=== PATIENT | male | born 1935 | race Caucasian/White ===

== ENCOUNTER → 2021-09-25 | Outpatient (CLI) | payer MEDICARE ==
[2021-09-25 16:07] LABS: HCT 48.1 % (39.0-53.0); HGB 15.8 gm/dL (13.0-17.5); MCH 33.1 pg (25.0-35.0); MCHC 32.8 g/dL (31.0-37.0); MCV 100.9 fL (80.0-100.0); Mean Platelet Volume 7.9; Platelet Count 220 k/uL (150-450); RBC 4.76 m/uL (4.30-5.90); RDW 12.6 % (11.5-15.5); WBC 5.1 k/uL (3.8-10.6)
== END | disposition home or self-care (01) ==
LOC: LABPAT 14:39
PROVIDERS: ATTEND Internal Medicine Interventional Cardiology
DX: Z01.812 Encounter for preprocedural laboratory examination (principal); R19.34 Left lower quadrant abdominal rigidity
CPT/HCPCS: 80051; 82565; 84520; 85027

== ENCOUNTER 2021-10-03 09:21 | Day surgery (SDC) | payer MEDICARE ==
[2021-09-27 09:08] VITALS: BMI 32.3
[~2021-10-03 09:21] MED LIST: ALPRAZolam 0.25 MG TAB PO PRN; ALPRAZolam 0.5 MG TAB PO PRN; ASPIRIN 325 MG TAB PO STA; ATORVASTATIN 80 MG TAB PO STA; NITROGLYCERIN SL TABS 0.4 MG TAB SUBLINGUAL PRN; SODIUM CHLORIDE 0.9% 1,000 ML in EMPTY BAG 1 BAG IV SCH
[2021-10-03 09:50] VITALS: RESP 18; TEMP 98.5
[2021-10-03] MEDS ORDERED: LIDOCAINE 1% INJ 10MG/ML (20 ML MDV) ONE (10:16)
[2021-10-03] MEDS ORDERED: VERAPAMIL 2.5 MG/ML 2 ML AMP ONE (10:16)
[2021-10-03] MEDS ORDERED: HEPARIN SODIUM 1,000 UN/ML (10ML VL) ONE (10:16)
[2021-10-03] MEDS: MIDAZOLAM 2 MG/2 ML VIAL IV ONE ×2 (10:37→10:48)
[2021-10-03] MEDS ORDERED: VERAPAMIL SYRINGE (5 MG/10 ML) INTRAARTER ONE (10:38)
[2021-10-03] MEDS: LIDOCAINE 1% INJ 10MG/ML (20 ML MDV) SQ ONE ×2 (10:40→10:52)
[2021-10-03] MEDS: NITROGLYCERIN 1000MCG/10ML SYRINGE INTRACORON ONE ×2 (10:58→11:10)
[2021-10-03] MEDS ORDERED: IOPAMIDOL-370 100ML BTL INJ ONE (11:10)
[2021-10-03] MEDS ORDERED: SODIUM CHLORIDE 0.9% 1,000 ML IV SCH (11:20)
[2021-10-03] MEDS ORDERED: METOPROLOL SUCCINATE (ER) 25 MG TAB.ER.24H PO STA (11:35)
[2021-10-03] MEDS ORDERED: LOSARTAN 50 MG TAB PO STA (11:35)
--- NOTE | 2021-10-03 14:56 | CC ---
CARDIAC CATHETERIZATION REPORT DATE OF SERVICE: 10/03/2021 PROCEDURE: Left heart catheterization and coronary angiography. PERFORMED BY: Dr. Francesco Perez. Moderate conscious sedation time was 30 minutes. Patient was administered Versed, oxygen saturation, hemodynamics and EKG were monitored closely. CLINICAL INFORMATION: Mr. Micha Chiang is an 86-year-old elderly gentleman with a history of hyperlipidemia and chest discomfort with recent stress test that revealed very suspicious area for ischemia inferior wall, was advised cardiac cath after due discussion regarding risks, benefits, and options. PROCEDURE NOTE: Under local anesthesia and strict aseptic precautions, a 6-Canadian introducer was placed in the right radial artery. I advanced a wire with the right catheter but I had difficulty in the brachial artery area. There was a significant amount of spasm. I gave additional verapamil and nitro but still the spasm persisted. I could not advance the wire comfortably and therefore I abandoned the procedure, went from the right femoral approach. Under local anesthesia and strict aseptic precautions, a 6-Canadian introducer was placed in the right femoral artery. Using standard Gina catheters, I performed coronary angiography and a pigtail catheter was used to check LV pressure but LV gram was not performed. The sheath was taken out and Angio-Seal device used to secure hemostasis. I then went ahead and took the radial sheath out and placed a TR band with good saturation of the fingers of the right hand of 94%. Patient tolerated procedure well without complication. Results were discussed with the patient and and he was sent to the extended stay unit in a stable condition. CARDIAC CATHETERIZATION FINDINGS: Left ventricular end-diastolic pressure was about 14-15 mmHg without any gradient across the aortic valve. CORONARY ANGIOGRAPHY FINDINGS: RIGHT CORONARY ARTERY: Dominant Vessel. No significant disease. Distally bifurcates into a large PDA and PLV, both of which supply a sizable amount of myocardium. PLV is larger with a large acute marginal branch also that supplies in the PDA distribution. No significant disease in the dominant RCA. LEFT MAIN CORONARY ARTERY: Short patent vessel. No significant disease. Bifurcates into LAD and circumflex. LEFT ANTERIOR DESCENDING CORONARY ARTERY: Proximal LAD has a 40% smooth lesion that gives off two diagonal branches proximally which has a 60% ostial lesion and a second small diagonal. Then the LAD is of good caliber runs all the way to the apex supplies a sizable amount of myocardium. No significant disease in the LAD in the mid and distal portion. The proximal LAD has a 40% narrowing and the first diagonal also have a 60% narrowing. The diagonal is of fair caliber. There was no ischemia in the diagonal distribution on the stress test. LEFT POSTERIOR CIRCUMFLEX CORONARY ARTERY: Technically a nondominant vessel, gives off a first obtuse marginal that has a 40% narrowing and then it continues in the AV groove, gives off a small posterolateral and left atrial circumflex branches which are free of significant disease. First OM therefore has a 40% narrowing. Left ventriculogram was not performed. FINAL IMPRESSION: This patient has a right dominant system, slightly elevated filling pressures. No gradient. 40% proximal LAD lesion smooth. There is also a 40% first obtuse marginal lesion. The dominant RCA is free of significant disease. RECOMMENDATIONS: I will add a beta pk in the form of metoprolol succinate 25 mg daily and losartan 50 mg daily to his regimen. He will continue Lipitor that he is now taking. Findings were reviewed. We will pursue medical therapy with risk factor modification. I will increase the Lipitor that he is now taking from 10-20 mg daily. He will be discharged later on today and I will see him in the office on Saturday. MMODL / IJN: [id number] /
[2021-10-03 15:08] VITALS: BP 145/79; PULSE 54
== END 2021-10-03 17:04 | disposition home or self-care (01) ==
LOC: CATHCVL 09:21
PROVIDERS: ATTEND Internal Medicine Interventional Cardiology
DX: I25.10 Atherosclerotic heart disease of native coronary artery without angina pectoris (principal); E78.5 Hyperlipidemia, unspecified; Z20.822 Contact with and (suspected) exposure to COVID-19
CPT/HCPCS: 93458; 87635; C1760; C1894 ×2; C1769 ×3; J2250; J2001; Q9967

== ENCOUNTER 2024-09-10 14:17 | Observation (INO) | payer MEDICARE ==
[2024-09-10 14:49] LABS: Basophils % (A) 0 %; Eosinophils # (A) 0.1 k/uL (0-0.7); Eosinophils % (A) 1 %; HCT 48.1 % (39.0-53.0); HGB 15.9 gm/dL (13.0-17.5); Lymphocytes # (A) 1.1 k/uL (1.0-4.8); Lymphocytes % (A) 15 %; MCH 33.2 pg (25.0-35.0); MCHC 33.1 g/dL (31.0-37.0); MCV 100.3 fL (80.0-100.0); Mean Platelet Volume 7.3; Monocytes # (A) 0.3 k/uL (0-1.0); Monocytes % (A) 4 %; Neutrophils % (A) 78 %; Platelet Count 215 k/uL (150-450); RDW 12.6 % (11.5-15.5); WBC 7.7 k/uL (3.8-10.6)
[2024-09-10 14:57] LABS: INR 1.1 (<1.2); Partial Thromboplastin Time 24.6 sec (22.0-30.0); Prothrombin Time 11.8 sec (10.0-12.5)
--- NOTE | 2024-09-10 14:58 | ED ---
General Adult HPI - General Chief complaint: Altered Mental Status Stated complaint: L arm numbness-sent by PCP Time Seen by Provider: 09/10/24 14:40 Source: patient, RN notes reviewed, old records reviewed Mode of arrival: ambulatory Limitations: no limitations - History of Present Illness Initial comments: This is an 89-year-old male who presents to the emergency department stating he was up and working around the house without any problems morning at about noon he started becoming confused and started having some left arm numbness but no loss of function and he also had expressive aphasia according to the daughter currently patient only has the numbness remaining he no longer has expressive aphasia and he is not confused at this point in time. According to the daughter he did not know the year did not know the address of his home. Patient denies any headache patient has numbness weakness. Patient denies any blood thinners. Patient denies chest pain or palpitations. Patient denies shortness of breath. Patient denies abdominal pain patient has nausea vomiting diarrhea. Patient [place] any recent fevers chills or cough - Related Data Home Medications Medication Instructions Recorded Confirmed Aspirin 81 mg PO DAILY 09/27/21 09/10/24 Finasteride [Proscar] 5 mg PO DAILY 09/27/21 09/10/24 Levothyroxine Sodium [Levoxyl] 125 mcg PO DAILY 09/27/21 09/10/24 Vit C/E/Zn/Coppr/Lutein/Zeaxan 1 cap PO PC-BID 09/27/21 09/10/24 [Preservision Areds 2 Softgel] Atorvastatin [Lipitor] 20 mg PO HS 09/10/24 09/10/24 Losartan [Cozaar] 50 mg PO DAILY 09/10/24 09/10/24 Sennosides [Senokot] 17.2 mg PO HS 09/10/24 09/10/24 Allergies Allergy/AdvReac Type Severity Reaction Status Date / Time No Known Allergies Allergy Verified 09/10/24 15:55 Review of Systems ROS Statement: Those systems with pertinent positive or pertinent negative responses have been documented in the HPI. ROS Other: All systems not noted in ROS Statement are negative. Past Medical History Past Medical History: Cancer, Osteoarthritis (OA), Thyroid Disorder Additional Past Medical History / Comment(s): "One month ago had episode of SOB and arms were numb". Hx Skin Cancer and Pre-Melanoma. Enlarged Prostate. Graves Disease. History of Any Multi-Drug Resistant Organisms: None Reported Past Surgical History: Hernia Repair Additional Past Surgical History / Comment(s): Radioactive Iodine treatment for Thyroid. Skin Cancer removed left ear. Umbilical hernia repair. Past Anesthesia/Blood Transfusion Reactions: No Reported Reaction Past Psychological History: No Psychological Hx Reported Smoking Status: Former smoker Past Alcohol Use History: None Reported Past Drug Use History: None Reported - Past Family History Mother Family Medical History: Cancer Father Family Medical History: Cancer General Exam - General Exam Comments Initial Comments: GENERAL: Patient is well-developed and well-nourished. Patient is nontoxic and well- hydrated and is in no acute distress. ENT: Neck is soft and supple. No significant lymphadenopathy is noted. Oropharynx is clear. Moist mucous membranes. Neck has full range of motion without eliciting any pain. EYES: The sclera were anicteric and conjunctiva were pink and moist. Extraocular movements were intact and pupils were equal round and reactive to light. Eyelids were unremarkable. PULMONARY: Unlabored respirations. Good breath sounds bilaterally. No audible rales rhonchi or wheezing was noted. CARDIOVASCULAR: There is a regular rate and rhythm without any murmurs gallops or rubs. ABDOMEN: Soft and nontender with normal bowel sounds. SKIN: Skin is clear with no lesions or rashes and otherwise unremarkable. NEUROLOGIC: Patient is alert and oriented x3. Cranial nerves II through XII are grossly intact. Motor is intact. Normal speech, volume and content. Symmetrical smile. Cerebellar exam grossly intact. Patient has some decrease sensation in the left arm but no decreased function NIH is 1 MUSCULOSKELETAL: Normal extremities with adequate strength and full range of motion. No lower extremity swelling or edema. No calf tenderness. LYMPHATICS: No significant lymphadenopathy is noted PSYCHIATRIC: Normal psychiatric evaluation. Limitations: no limitations Course Vital Signs 09/10/24 09/10/24 09/10/24 14:23 14:39 15:46 Temperature 97.5 F L 98.7 F Pulse Rate 67 63 64 Respiratory 20 15 18 Rate Blood Pressure 151/75 143/63 146/92 O2 Sat by Pulse 97 96 95 Oximetry Medical Decision Making - Medical Decision Making EKG is interpreted by myself but EKG shows a sinus rhythm with an occasional PVC at 61 bpm IL interval 192 QRS is 96 QT interval is 441 QTc is 443. Patient's EKG shows no ST segment elevation or depression. Was pt. sent in by a medical professional or institution (FERNANDA Miller, REGULATION SUPERVISOR, urgent care, hospital, or correction...) When possible be specific @ -No Did you speak to anyone other than the patient for history (EMS, parent, family, police, friend...)? What history was obtained from this source @ -No Did you review nursing and triage notes (agree or disagree)? Why? @ -I reviewed and agree with nursing and triage notes Were old charts reviewed (outside hosp., previous admission, EMS record, old EKG, old radiological studies, urgent care reports/EKG's, correction records)? Report findings @ -No old charts were reviewed Differential Diagnosis? @ -Differential CVA Ischemic stroke, hemorrhagic stroke, brain tumor, atypical migraine, Wernicke's encephalopathy, seizure, multiple sclerosis, meningitis, encephalitis, hypoglycemia, Guillain-Mendiola, electrolytes disturbance, myasthenia gravis.... This is not meant to be an all-inclusive list EKG interpreted by me (3pts min.). @ -As above X-rays interpreted by me (1pt min.). @ -Chest x-ray shows no acute abnormality CT interpreted by me (1pt min.). @ -CT of the brain shows no acute abnormality CT angiogram of the head and neck shows no acute abnormality U/S interpreted by me (1pt. min.). @ -None done What testing was considered but not performed or refused? (CT, X-rays, U/S, labs)? Why? @ -None What meds were considered but not given or refused? Why? @ -None Did you discuss the management of the patient with other professionals (professionals i.e. FERNANDA Miller, REGULATION SUPERVISOR, lab, RT, psych nurse, medical social worker, irrigator overhead, teacher, state highway police officer, machine adjuster leader case trim)? Give summary @ -I spoke with [facility]ist they agreed to admit the patient admit the patient recommending orders Was smoking cessation discussed for >3mins.? @ -No Was critical care preformed (if so, how long)? @ -35 minutes Were there social determinants of health that impacted care today? How? (Homelessness, low income, unemployed, alcoholism, drug addiction, transportation, low edu. Level, literacy, decrease access to med. care, retirement, rehab)? @ -No Was there de-escalation of care discussed even if they declined (Discuss DNR or withdrawal of care, Hospice)? DNR status @ -No What co-morbidities impacted this encounter? (DM, HTN, Smoking, COPD, CAD, Cancer, CVA, ARF, Chemo, Hep., AIDS, mental health diagnosis, sleep apnea, morbid obesity)? @ -None Was patient admitted / discharged? Hospital course, mention meds given and route, prescriptions, significant lab abnormalities, going to OR and other pe rtinent info. @ -[employer] was called overhead immediately on patient's arrival. Patient's symptom completely resolved during his course in the ED. Patient CTs were negative. Patient will be admitted to Dr. Gresham with a consult to neurology Undiagnosed new problem with uncertain prognosis? @ -No Drug Therapy requiring intensive monitoring for toxicity (Heparin, Nitro, Insulin, Cardizem)? @ -No Were any procedures done? @ -No Diagnosis/symptom? @ -TIA Acute, or Chronic, or Acute on Chronic? @ -Acute Uncomplicated (without systemic symptoms) or Complicated (systemic symptoms)? @ -Complicated Side effects of treatment? @ -No Exacerbation, Progression, or Severe Exacerbation? @ -No Poses a threat to life or bodily function? How? (Chest pain, [place], [place], pneumonia, PE, COPD, DKA, ARF, appy, cholecystitis, CVA, Diverticulitis, Homicidal, Suicidal, threat to staff... and all critical care pts) @ -No - Lab Data Result diagrams: 09/10/24 14:41 09/10/24 14:41 Lab Results 09/10/24 09/10/24 09/10/24 Range/Units 14:41 14:41 14:41 WBC 7.7 (3.8-10.6) k/uL RBC 4.80 (4.30-5.90) m/uL Hgb 15.9 (13.0-17.5) gm/dL Hct 48.1 (39.0-53.0) % MCV 100.3 H (80.0-100.0) fL MCH 33.2 (25.0-35.0) pg MCHC 33.1 (31.0-37.0) g/dL RDW 12.6 (11.5-15.5) % Plt Count 215 (150-450) k/uL MPV 7.3 Neutrophils % 78 % Lymphocytes % 15 % Monocytes % 4 % Eosinophils % 1 % Basophils % 0 % Neutrophils # 6.0 (1.3-7.7) k/uL Lymphocytes # 1.1 (1.0-4.8) k/uL Monocytes # 0.3 (0-1.0) k/uL Eosinophils # 0.1 (0-0.7) k/uL Basophils # 0.0 (0-0.2) k/uL PT 11.8 (10.0-12.5) sec INR 1.1 (<1.2) APTT 24.6 (22.0-30.0) sec Sodium 138 (137-145) mmol/L Potassium 4.6 (3.5-5.1) mmol/L Chloride 105 (98-107) mmol/L Carbon Dioxide 26 (22-30) mmol/L Anion Gap 7 mmol/L BUN 26 H (9-20) mg/dL Creatinine 0.91 (0.66-1.25) mg/dL Est GFR (CKD-EPI)AfAm 87 (>60 ml/min/1.73 sqM) Est GFR (CKD-EPI)NonAf 76 (>60 ml/min/1.73 sqM) Glucose 149 H (74-99) mg/dL Calcium 8.9 (8.4-10.2) mg/dL Total Bilirubin 0.8 (0.2-1.3) mg/dL AST 31 (17-59) U/L ALT 20 (4-49) U/L Alkaline Phosphatase 54 (38-126) U/L Creatine Kinase 163 (55-170) U/L Troponin I (0.000-0.034) ng/mL Total Protein 6.5 (6.3-8.2) g/dL Albumin 4.0 (3.5-5.0) g/dL 09/10/24 Range/Units 14:41 WBC (3.8-10.6) k/uL RBC (4.30-5.90) m/uL Hgb (13.0-17.5) gm/dL Hct (39.0-53.0) % MCV (80.0-100.0) fL MCH (25.0-35.0) pg MCHC (31.0-37.0) g/dL RDW (11.5-15.5) % Plt Count (150-450) k/uL MPV Neutrophils % % Lymphocytes % % Monocytes % % Eosinophils % % Basophils % % Neutrophils # (1.3-7.7) k/uL Lymphocytes # (1.0-4.8) k/uL Monocytes # (0-1.0) k/uL Eosinophils # (0-0.7) k/uL Basophils # (0-0.2) k/uL PT (10.0-12.5) sec INR (<1.2) APTT (22.0-30.0) sec Sodium (137-145) mmol/L Potassium (3.5-5.1) mmol/L Chloride (98-107) mmol/L Carbon Dioxide (22-30) mmol/L Anion Gap mmol/L BUN (9-20) mg/dL Creatinine (0.66-1.25) mg/dL Est GFR (CKD-EPI)AfAm (>60 ml/min/1.73 sqM) Est GFR (CKD-EPI)NonAf (>60 ml/min/1.73 sqM) Glucose (74-99) mg/dL Calcium (8.4-10.2) mg/dL Total Bilirubin (0.2-1.3) mg/dL AST (17-59) U/L ALT (4-49) U/L Alkaline Phosphatase (38-126) U/L Creatine Kinase (55-170) U/L Troponin I <0.012 (0.000-0.034) ng/mL Total Protein (6.3-8.2) g/dL Albumin (3.5-5.0) g/dL Disposition Clinical Impression: TIA (transient ischemic attack) Disposition: ADMITTED IP TO THIS HOSP Referrals: Rom Mena MD [Primary Care Provider] - 1-2 days Time of Disposition: 17:01
[2024-09-10] MEDS: SODIUM CHLORIDE 0.9% 500 ML 500 ML IV STA (15:01)
--- NOTE | 2024-09-10 15:02 | CT ---
EXAMINATION TYPE: CODE STROKE: CT brain wo contr CT DLP: 1657.9 mGycm, Automated exposure control for dose reduction was used. DATE OF EXAM: 09/10/2024 2:39 PM COMPARISON: None. CLINICAL INDICATION:Male, 89 years old with history of Neuro deficit, acute, stroke suspected, TECHNIQUE: Brain: Multiple axial CT images of the brain were obtained without IV contrast. . Coronal and sagitta l reformats reviewed. FINDINGS: Brain: Extra-axial spaces: No abnormal extra-axial fluid collections. Ventricular system: Within normal limits Cerebral parenchyma: Cerebral atrophy. No acute intraparenchymal hemorrhage or mass effect. The nair -white junction is well differentiated. Scattered hypoattenuating areas are seen within the periventr icular white matter. Cerebellum: Unremarkable. Mass effect: No evidence of midline shift. Intracranial vasculature: Atherosclerotic calcifications of the intracranial vessels. Soft tissues: Normal. Calvarium/osseous structures: No depressed skull fracture. Paranasal sinuses and mastoid air cells: Clear Visualized orbits: Bilateral aphakia IMPRESSION: 1. No acute intracranial process. 2. Nonspecific white matter changes, likely secondary to chronic small vessel ischemic disease. [facility], , 09/10/2024 3:00 PM
[2024-09-10 15:07] LABS: ALT 20 U/L (4-49); African American GFR (CKD) 87 (>60 ml/min/1.73 sqM); Anion Gap 7 mmol/L; Blood Urea Nitrogen 26 mg/dL (9-20); Calcium 8.9 mg/dL (8.4-10.2); Carbon Dioxide 26 mmol/L (22-30); Chloride 105 mmol/L (98-107); Creatine Kinase 163 U/L (55-170); Glucose 149 mg/dL (74-99); Non-African American GFR(CKD) 76 (>60 ml/min/1.73 sqM); Sodium 138 mmol/L (137-145); Total Bilirubin 0.8 mg/dL (0.2-1.3); Total Protein 6.5 g/dL (6.3-8.2)
[2024-09-10 15:09] LABS: AST 31 U/L (17-59); Alkaline Phosphatase 54 U/L (38-126); Potassium 4.6 mmol/L (3.5-5.1)
--- NOTE | 2024-09-10 15:17 | CT ---
EXAMINATION TYPE: CT angio head neck CT DLP: 1657.9 mGycm, Automated exposure control for dose reduction was used. DATE OF EXAM: 09/10/2024 3:07 PM COMPARISON: CT brain of the same date. CLINICAL INDICATION:Male, 89 years old with history of Neuro deficit, acute, stroke suspected; [facility], TECHNIQUE: Axially acquired helical CT angiogram of the head and neck was obtained with contrast util izing 75 cc of Isovue-370 administered intravenously. Axial images are supplemented with 3D reconstru ctions which were post-processed at an independent workstation. NASCET criteria used. FINDINGS: CTA HEAD: No evidence of acute intracranial hemorrhage, mass effect, or midline shift. The ventricles, sulci, a nd cisterns are unremarkable. The visualized portions of the internal carotid arteries, middle cerebral arteries, anterior cerebral arteries, and posterior cerebral arteries are patent. The basilar and vertebral arteries are patent. CTA NECK: Right Carotid System: The common carotid artery and external carotid artery are patent. The carotid bifurcation demonstrate s no evidence of hemodynamically significant stenosis. Mild calcified plaque at the proximal right in ternal carotid artery. No significant stenosis. The remaining portions of the internal carotid artery demonstrate normal size without significant narrowing. Left Carotid System: The common carotid artery and external carotid artery are patent. The carotid bifurcation demonstrate s no evidence of hemodynamically significant stenosis. There is some tortuosity of the proximal left internal carotid artery. The remaining portions of the internal carotid artery demonstrate normal siz e without significant narrowing. Vertebral arteries are patent without evidence hemodynamically significant stenosis. There is a three-vessel aortic arch. The origins of the great vessels are patent. No evidence of hemo dynamically significant stenosis. Minimal bilateral paraseptal emphysematous changes in the bilateral apices. Multilevel degenerative c hanges of the visualized spine. Prominent posterior disc osteophyte complex at C5-C6 resulting in at least mild central canal stenosis. IMPRESSION: 1. No evidence of dissection of the cervical internal carotid arteries or vertebral arteries or any e vidence of significant stenosis at the carotid bifurcations. 2. No evidence of high-grade stenosis or intracranial aneurysm. [facility], , 09/10/2024 3:14 PM
--- NOTE | 2024-09-10 16:08 | XR ---
EXAMINATION TYPE: XR chest 2V DATE OF EXAM: 09/10/2024 3:35 PM COMPARISON: None. CLINICAL INDICATION: Male, 89 years old with history of altered mental status, TECHNIQUE: XR chest 2V view(s) obtained. FINDINGS: The heart size is normal. The pulmonary vasculature is normal. The lungs are clear. There is hyperinflation and flattening the diaphragms compatible with COPD IMPRESSION: 1. No acute pulmonary process. 2. COPD [facility], , 09/10/2024 4:05 PM
[2024-09-10] MEDS: ASPIRIN 325 MG TAB PO STA (17:20)
[2024-09-11 06:43] VITALS: RESP 16
[2024-09-11] MEDS: ASPIRIN 325 MG TAB PO SCH (08:27)
[2024-09-11 09:37] LABS: Chol/HDL Ratio 3.07 Ratio; LDL Cholesterol,Calculated 83.6 mg/dL (0.0-131.0)
--- NOTE | 2024-09-11 15:21 | P.HPIM ---
History of Present Illness H&P Date: 09/11/24 This is a pleasant 89-year-old male who presented to the emergency department with confusion, left arm numbness and loss of function also expressive aphasia with concerns of TIA versus CVA. Patient follows with Dr. Rom Mena in the outpatient setting with a past medical history of skin cancer and premelanoma, osteoarthritis, thyroid disorder, Graves' disease. Per daughter patient was confused and unable to speak clearly having some left-sided numbness that had resolved and upon arrival to the ER patient's mentation had improved to baseline. CT of the brain was done which showed no acute intracranial process with nonspecific white matter changes likely secondary to chronic small vessel ischemic disease. CT angio performed and patient was noted to have no evidence of dissection of the cervical internal carotid arteries and no evidence of significant stenosis or intracranial aneurysm. Labs reviewed and within normal limits other than a mildly elevated glucose of 149, troponin was negative, cholesterol panel was obtained and within normal limits. Patient was admitted under observation with concerns of TIA with neurology on consult. An MRI of the brain is scheduled and pending for today. On exam patient did report some congestion with a slight cough REVIEW OF SYSTEMS: CONSTITUTIONAL: No fever, no malaise, no fatigue. HEENT: No recent visual problems or hearing problems. Denied any sore throat. CARDIOVASCULAR: No chest pain, orthopnea, PND, no palpitations, no syncope. PULMONARY: No shortness of breath, reports slight cough with congestion, no hemoptysis. GASTROINTESTINAL: No diarrhea, no nausea, no vomiting, no abdominal pain. NEUROLOGICAL: No headaches, no weakness, no numbness. HEMATOLOGICAL: Denies any bleeding or petechiae. GENITOURINARY: Denies any burning micturition, frequency, or urgency. MUSCULOSKELETAL/RHEUMATOLOGICAL: Denies any joint pain, swelling, or any muscle pain. ENDOCRINE: Denies any polyuria or polydipsia. The rest of the 14-point review of systems is negative. PHYSICAL EXAMINATION: GENERAL: The patient is alert and oriented x3, not in any acute distress. Well developed, elderly appearing, obese HEENT: Pupils are round and equally reacting to light. EOMI. No scleral icterus. No conjunctival pallor. Normocephalic, atraumatic. No pharyngeal erythema. No thyromegaly. CARDIOVASCULAR: S1 and S2 muffled PULMONARY: Diminished breath sounds bilaterally otherwise chest is clear to auscultation, no wheezing or crackles. Upper bronchial congestion noted ABDOMEN: Soft, obese. Nontender, nondistended, normoactive bowel sounds. No palpable organomegaly. MUSCULOSKELETAL: No joint swelling or deformity. EXTREMITIES: No cyanosis, clubbing, or pedal edema. NEUROLOGICAL: Gross neurological examination did not reveal any focal deficits. SKIN: No rashes. Assessment: Left arm numbness with expressive aphasia and confusion with concerns of TIA versus CVA, last known well 09/10 12 noon History of skin cancer and premelanoma Enlarged prostate Graves' disease with thyroid disorder History of osteoarthritis Cough with congestion, possible bronchitis versus possible volume overload as was given a 500 bolus in the ER, denies any sick contacts and reports did not have this cough prior to admission Obesity with a BMI 30.1 GI prophylaxis DVT prophylaxis Full code Plan: Patient was admitted with concerns of TIA versus CVA with neurology on consult and pending MRI of the brain is ordered and pending Home medications reviewed and resumed as appropriate Patient reporting some bronchial congestion with cough and phlegm production although denies any sick contacts and reports this was not present prior to admission yesterday afternoon. Will obtain a Cepheid to rule out COVID or other virologies Continue ongoing neurological workup and 2D echo is ordered as well and pending. Prognosis is guarded at this time The impression and plan of care has been dictated by Ladonna Toro, Nurse Practitioner as directed. Dr. Reynaldo MD I have performed a history and examination and MDM of this patient, discussed the same with the dictator, and agree with the dictator's assessment and plan as written ,documented as a scribe. Based on total visit time, I have performed more than 50% of the visit. Past Medical History Past Medical History: Cancer, Osteoarthritis (OA), Thyroid Disorder Additional Past Medical History / Comment(s): "One month ago had episode of SOB and arms were numb". Hx Skin Cancer and Pre-Melanoma. Enlarged Prostate. Graves Disease. History of Any Multi-Drug Resistant Organisms: None Reported Past Surgical History: Hernia Repair Additional Past Surgical History / Comment(s): Radioactive Iodine treatment for Thyroid. Skin Cancer removed left ear. Umbilical hernia repair. Past Anesthesia/Blood Transfusion Reactions: No Reported Reaction Past Psychological History: No Psychological Hx Reported Smoking Status: Former smoker Past Alcohol Use History: None Reported Additional Past Alcohol Use History / Comment(s): Quit smoking in 1973. Past Drug Use History: None Reported - Past Family History Mother Family Medical History: Cancer Father Family Medical History: Cancer Medications and Allergies Home Medications Medication Instructions Recorded Confirmed Type Aspirin 81 mg PO DAILY 09/27/21 09/10/24 History Finasteride [Proscar] 5 mg PO DAILY 09/27/21 09/10/24 History Levothyroxine Sodium [Levoxyl] 125 mcg PO DAILY 09/27/21 09/10/24 History Vit C/E/Zn/Coppr/Lutein/Zeaxan 1 cap PO PC-BID 09/27/21 09/10/24 History [Preservision Areds 2 Softgel] Atorvastatin [Lipitor] 20 mg PO HS 09/10/24 09/10/24 History Losartan [Cozaar] 50 mg PO DAILY 09/10/24 09/10/24 History Sennosides [Senokot] 17.2 mg PO HS 09/10/24 09/10/24 History Allergies Allergy/AdvReac Type Severity Reaction Status Date / Time No Known Allergies Allergy Verified 09/10/24 15:55 Physical Exam Vitals: Vital Signs Temp Pulse Pulse Resp BP BP Pulse Ox 09/11/24 06:43 97.9 F 53 L 16 151/80 96 09/11/24 02:00 98 F 55 L 15 148/71 99 09/10/24 21:08 98.1 F 53 L 16 149/79 98 09/10/24 19:03 67 17 152/65 97 09/10/24 19:00 64 20 152/65 95 09/10/24 15:46 64 18 146/92 95 09/10/24 14:39 98.7 F 63 15 143/63 96 09/10/24 14:23 97.5 F L 67 20 151/75 97 Intake and Output 09/10/24 09/11/24 09/11/24 22:59 06:59 14:59 Other: # Voids 2 Weight 97.976 kg Results CBC & Chem 7: 09/10/24 14:41 09/10/24 14:41 Labs: Abnormal Lab Results - Last 24 Hours (Table) 09/10/24 09/10/24 Range/Units 14:41 14:41 MCV 100.3 H (80.0-100.0) fL BUN 26 H (9-20) mg/dL Glucose 149 H (74-99) mg/dL Thrombosis Risk Factor Assmnt - DVT/VTE Prophylaxis DVT/VTE Prophylaxis: Mechanical Prophylaxis ordered - Choose All That Apply Any of the Below Risk Factors Present?: Yes Each Factor Represents 1 point: Obesity (BMI >25) Other Risk Factors: Yes Each Risk Factor Represents 3 Points: Age 75 years or older Thrombosis Risk Factor Assessment Total Risk Factor Score: 4 Thrombosis Risk Factor Assessment Level: Moderate Risk Assessment and Plan Time with Patient: Greater than 30
--- NOTE | 2024-09-11 15:50 | P.CNNES ---
History of Present Illness Consult date: 09/11/24 Requesting physician: Be Ross Reason for Consult: tia History of Present Illness: This is an 89-year-old gentleman who presented emergency department because of speech difficulty and left upper extremity numbness. He is accompanied with his daughter. Seems yesterday just around noon seems the patient felt he was blank and he could not express himself. He felt like he knew what he wanted to say but he could not get the words out. He had a hard time getting the words out to his daughter and could not answer. He also had left upper extremity tingling. He went to his primary care physician and he was told to come to the hospital immediately. He thinks the symptoms lasted for 30 minutes but per the daughter she thinks lasted a bit more than 30 minutes. He denies any history of stroke or TIAs in the past. Denies any loss of consciousness. No history of seizure. Denies history of atrial fibrillation. He is on aspirin 81 mg daily. He is also on Lipitor. He feels back to baseline. Some of the workup during this hospital visit consisted of: Lipid Panel is triglyceride 135, cholesterol 164, LDL is 83 and HDL is 53. I reviewed rest of the lab workup. CT head: It is reported as no acute intracranial process. Nonspecific white matter changes, likely secondary due to chronic small vessel ischemic disease. Personally reviewed the CT and I agree with the report. CTA head and neck: Reported as no evidence of dissection of cervical internal carotid artery or vertebral artery or any evidence of significant stenosis at the carotid bifurcation. No evidence of high-grade stenosis or intracranial aneurysm. Review of Systems Positive and negative as per HPI. Past Medical History Past Medical History: Cancer, Osteoarthritis (OA), Thyroid Disorder Additional Past Medical History / Comment(s): "One month ago had episode of SOB and arms were numb". Hx Skin Cancer and Pre-Melanoma. Enlarged Prostate. Graves Disease. History of Any Multi-Drug Resistant Organisms: None Reported Past Surgical History: Hernia Repair Additional Past Surgical History / Comment(s): Radioactive Iodine treatment for Thyroid. Skin Cancer removed left ear. Umbilical hernia repair. Past Anesthesia/Blood Transfusion Reactions: No Reported Reaction Past Psychological History: No Psychological Hx Reported Smoking Status: Former smoker Past Alcohol Use History: None Reported Additional Past Alcohol Use History / Comment(s): Quit smoking in 1973. Past Drug Use History: None Reported - Past Family History Mother Family Medical History: Cancer Father Family Medical History: Cancer Medications and Allergies Home Medications Medication Instructions Recorded Confirmed Type Aspirin 81 mg PO DAILY 09/27/21 09/10/24 History Finasteride [Proscar] 5 mg PO DAILY 09/27/21 09/10/24 History Levothyroxine Sodium [Levoxyl] 125 mcg PO DAILY 09/27/21 09/10/24 History Vit C/E/Zn/Coppr/Lutein/Zeaxan 1 cap PO PC-BID 09/27/21 09/10/24 History [Preservision Areds 2 Softgel] Atorvastatin [Lipitor] 20 mg PO HS 09/10/24 09/10/24 History Losartan [Cozaar] 50 mg PO DAILY 09/10/24 09/10/24 History Sennosides [Senokot] 17.2 mg PO HS 09/10/24 09/10/24 History Allergies Allergy/AdvReac Type Severity Reaction Status Date / Time No Known Allergies Allergy Verified 09/10/24 15:55 Physical Examination - Vital Signs Vital Signs: Vital Signs Temp Pulse Pulse Resp BP BP Pulse Ox 09/11/24 14:06 98.0 F 57 L 16 155/73 95 09/11/24 14:00 16 09/11/24 08:00 16 09/11/24 06:43 97.9 F 53 L 16 151/80 96 09/11/24 02:00 98 F 55 L 15 148/71 99 09/10/24 21:08 98.1 F 53 L 16 149/79 98 09/10/24 19:03 67 17 152/65 97 09/10/24 19:00 64 20 152/65 95 09/10/24 15:46 64 18 146/92 95 Intake and Output 09/11/24 09/11/24 09/11/24 06:59 14:59 22:59 Other: Voiding Method Urinal # Voids 2 3 GENERAL: The patient is sitting up in bed and is not in acute distress. NEUROLOGICAL: Higher mental function: The patient is awake, alert, oriented to self, place and time. Patient is following commands. No aphasia and no neglect. Cranial nerves: The pupils are round, equal and reactive to light and accommodation. Visual almendarez are full to confrontation throughout. Extraocular movement is intact no nystagmus is noted. Facial sensation is normal to touch throughout. The facial strength is normal throughout. Hearing is moderately decreased bilaterally to hand rub. Tongue is midline and moved [id number] without any difficulty. No dysarthria is noted. Shoulder shrug is normal bilaterally. Motor: Gait is normal. The strength is 5 over 5 throughout. Normal tone and bulk. Cerebellum: Normal finger to nose bilaterally. Sensation: Sensation is normal to touch throughout. Reflexes (right/left): 2+ throughout uppers while lowers he was resistant on examination. Plantars are mute bilaterally. Results - Laboratory Findings CBC and BMP: 09/10/24 14:41 09/10/24 14:41 Abnormal Lab Findings: Abnormal Labs 09/10/24 09/10/24 14:41 14:41 MCV 100.3 H BUN 26 H Glucose 149 H Assessment and Plan Assessment: This is an 89-year-old gentleman who presented emergency department because of speech difficulty in which she felt he knew what he wanted to say but he could not get it out as well as left upper extremity numbness. His symptoms has resolved. Likely transient ischemic attack History of Graves' disease History of melanoma Plan: I ordered MRI of the brain but tach by the nurse that it would not be completed until Saturday. Does not want to wait till Saturday for the MRI therefore I will get a repeat CT of the head tomorrow to assess if there is any changes from the facility to the second one Ordered 2D echo Patient is resumed on his home dose of aspirin 81 mg daily. In addition I started the patient on Plavix 75 mg daily. Recommend patient to be on dual antiplatelet for 21 days and after 21 days continue Plavix indefinitely but discontinue aspirin. Patient is resumed on his home dose of Lipitor 20 mg nightly Continue neurochecks Cardiac monitoring PT OT and GL[employer] M[employer] REPAIRER are consulted Will defer the rest of the medical management to primary team and other specialist For DVT prophylaxis I started the patient on subcu heparin 5000 units every 12 hours Upon discharge recommend the patient to follow-up with a neurologist as an outpatient within 2 weeks. The plan is discussed with patient, his daughter who is at bedside and his nurse. Thank you for the consultation. Time with Patient: Greater than 30
[2024-09-11] MEDS: VIT A,C & E-LUTEIN-MINERALS 1 EACH TAB PO SCH (16:56)
[2024-09-11] MEDS: LOSARTAN 50 MG TAB PO SCH (16:56)
[2024-09-11] MEDS: CLOPIDOGREL 75 MG TAB PO SCH (16:56)
[2024-09-11] MEDS: FINASTERIDE 5 MG TAB PO SCH (16:56)
[2024-09-11 20:42] VITALS: PULSE 51
[2024-09-11] MEDS: SENNOSIDES 8.6 MG TAB PO SCH (20:44)
[2024-09-11] MEDS: HEPARIN SODIUM,PORCINE 5,000 UNIT/ML 1 ML VIAL SQ SCH (20:45)
[2024-09-11] MEDS: ATORVASTATIN 20 MG TAB PO SCH (20:45)
[2024-09-12] MEDS: LEVOTHYROXINE 125 MCG TAB PO SCH (05:33)
[2024-09-12 08:16] VITALS: BP 150/79; TEMP 98.2
[2024-09-12] MEDS: ASPIRIN 81 MG PO SCH (08:42)
--- NOTE | 2024-09-12 10:35 | CT ---
EXAMINATION TYPE: CT brain wo con DATE OF EXAM: 09/12/2024 COMPARISON: 09/10/2024 CLINICAL INDICATION: Male, 89 years old with history of stroke. Left arm tingling and expressive aph home.; [facility], Stroke, LT arm tingling and expressive aphasia CT DLP: 1172.4 mGycm Automated exposure control for dose reduction was used. Findings: The ventricles, basal cisterns and sulci over the convexities are within normal limits and there is n o mass effect or shift of midline structures. No abnormal density is seen throughout the brain parenchyma and there is no acute intra or extra-axia l hemorrhage. The posterior fossa including the brainstem, fourth ventricle and cerebellar pontine angles appear no rmal. Intraorbital contents appear normal and symmetric. Visualized paranasal sinuses and mastoid air cells are well aerated. The calvarium is intact. IMPRESSION: No significant abnormality seen. There is no acute bleed or mass effect. [facility], Workstation: [id number] 09/12/2024 10:32 AM
--- NOTE | 2024-09-12 15:05 | P.DS ---
Providers Date of admission: 09/10/24 17:01 Expected date of discharge: 09/12/24 Attending physician: Viv Gresham Consults: 09/10/24 17:02 Consult Physician Routine Consulting Provider: Lora Carlson Consult Reason/Comments: TIA Do you want consulting provider notified?: Yes Primary care physician: Rom Lugo Hospital Course: Discharge diagnoses: Left arm numbness with expressive aphasia and confusion with concerns of TIA versus CVA, last known well 09/10 12 noon History of skin cancer and premelanoma Enlarged prostate Graves' disease with thyroid disorder History of osteoarthritis Cough with congestion, possible bronchitis versus possible volume overload as was given a 500 bolus in the ER, denies any sick contacts and reports did not have this cough prior to admission Obesity with a BMI 30.[address] head and repeat CT head negative for any acute process. MRI brain was ordered, patient did not want to stay in the hospital until Saturday, per neurology okay to discharge. Continue aspirin for 21 days, continue Plavix indefinitely Continue statin Resume home medication Outpatient follow-up with neurology. Hospital course: This is a pleasant 89-year-old male who presented to the emergency department with confusion, left arm numbness and loss of function also expressive aphasia with concerns of TIA versus CVA. Patient follows with Dr. Rom Lugo in t outpatient setting with a past medical history of skin cancer and premelanoma, osteoarthritis, thyroid disorder, Graves' disease. Per daughter patient was confused and unable to speak clearly having some left-sided numbness that had resolved and upon arrival to the ER patient's mentation had improved to baseline. CT of the brain was done which showed no acute intracranial process with nonspecific white matter changes likely secondary to chronic small vessel ischemic disease. CT angio performed and patient was noted to have no evidence of dissection of the cervical internal carotid arteries and no evidence of significant stenosis or intracranial aneurysm. Labs reviewed and within normal limits other than a mildly elevated glucose of 149, troponin was negative, cholesterol panel was obtained and within normal limits. Patient was admitted under observation with concerns of TIA with neurology on consult. An MRI of the brain is scheduled and pending for today. On exam patient did report some congestion with a slight cough Patient was admitted to hospital for further evaluation and management. Patient's symptoms improved and remained resolved during hospitalization. Neurology evaluated the patient, recommended MRI which was scheduled for Saturday, patient did not want to stay in the hospital. Neurology recommended repeat brain CT which was negative for acute process. Per neurology okay to discharge patient and follow-up with neurology as outpatient. Echocardiogram was done and pending at the time of discharge. Patient's home medication resumed at discharge. Please refer to [facility] rec and assessment plan for further details. Neurology recommended continue aspirin for 21 days, recommended to continue Plavix indefinitely, patient continued on statin and blood pressure medications. Follow-up with PCP in 1 week. Follow-up with neurology in 2 weeks. Follow with cardiology as outpatient. PHYSICAL EXAMINATION: GENERAL: The patient is A&O x3, NAD HEENT: EOMI, Sclerae anicteric, Moist Mucous membranes Neck: Supple, Non tender, No JVD PULMONARY: Equal breath souds B/L, No wheezing, No crackles. CARDIOVASCULAR: S1, S2 present. No murmurs, rubs, or gallops. ABDOMEN: Soft, nontender, nondistended, normoactive bowel sounds. No guarding or rebound tenderness. MUSCULOSKELETAL: No edema, No cyanosis. No clubbing. Normal ROM. Intact peripheral pulses. EXTREMITIES: No cyanosis, clubbing, or pedal edema. NEUROLOGICAL: CN 2-12 grossly intact. No FND SKIN: No rashes. Dictation was produced using [employer] dictation software. please excuse any grammatical, word or spelling errors. Plan - Discharge Summary Discharge Rx Participant: No New Discharge Prescriptions: New Clopidogrel [Plavix] 75 mg PO DAILY #30 tab Continue Levothyroxine Sodium [Levoxyl] 125 mcg PO DAILY Aspirin 81 mg PO DAILY Vit C/E/Zn/Coppr/Lutein/Zeaxan [Preservision Areds 2 Softgel] 1 cap PO PC-BID Sennosides [Senokot] 17.2 mg PO HS Losartan [Cozaar] 50 mg PO DAILY Finasteride [Proscar] 5 mg PO DAILY Changed Atorvastatin [Lipitor] 40 mg PO HS #60 Discharge Medication List Aspirin 81 mg PO DAILY 09/27/21 [History] Finasteride [Proscar] 5 mg PO DAILY 09/27/21 [History] Levothyroxine Sodium [Levoxyl] 125 mcg PO DAILY 09/27/21 [History] Vit C/E/Zn/Coppr/Lutein/Zeaxan [Preservision Areds 2 Softgel] 1 cap PO PC-BID 09/27/21 [History] Losartan [Cozaar] 50 mg PO DAILY 09/10/24 [History] Sennosides [Senokot] 17.2 mg PO HS 09/10/24 [History] Atorvastatin [Lipitor] 40 mg PO HS #60 09/12/24 [Rx] Clopidogrel [Plavix] 75 mg PO DAILY #30 tab 09/12/24 [Rx] Follow up Appointment(s)/Referral(s): Rom Lugo MD [Primary Care Provider] - 1-2 days Lora Carlson MD [STAFF PHYSICIAN] - 1 Week Patient Instructions/Handouts: Transient Ischemic Attack (ED), Transient Ischemic Attack (DC) Activity/Diet/Wound Care/Special Instructions: FOLLOW UP WITH DR LUGO FOR ECHO RESULTS AND FOLLOW UP WITH OUTPATIENT EEG AND MRI (PER DR LORA CARLSON) FOLLOW UP SOONER FOR WORSENING SYMPTOMS, PROBLEMS, OR CONCERNS. List and phone numbers of 3 local Neurologist provided for patient to call on saturday. Instructed pt to follow up with Dr Lugo in 1 to 2 days and call on Saturday Discharge Disposition: HOME SELF-CARE
--- NOTE | 2024-09-12 15:11 | P.PN ---
Subjective Progress Note Date: 09/12/24 I am following up with the patient and he feels he is doing drastically better no further neurological issues. Objective - Vital Signs Vital signs: Vital Signs Temp 98.2 F 09/12/24 07:00 Pulse 51 L 09/12/24 07:00 Resp 16 09/12/24 08:00 BP 150/79 09/12/24 07:00 Pulse Ox 95 09/12/24 09:54 FiO2 Intake & Output 09/11/24 09/12/24 09/12/24 18:59 06:59 18:59 Intake Total 1040 Balance 1040 Intake: Oral 1040 Other: Voiding Method Urinal Urinal # Voids 3 3 - Exam GENERAL: The patient is sitting up in bed and is not in acute distress. NEUROLOGICAL: Higher mental function: The patient is awake, alert, oriented to self, place and time. Patient is following commands. No aphasia and no neglect. Cranial nerves: The pupils are round, equal and reactive to light and accommodation. Visual almendarez are full to confrontation throughout. Extraocular movement is intact no nystagmus is noted. Facial sensation is normal to touch throughout. The facial strength is normal throughout. Hearing is moderately decreased bilaterally to hand rub. Tongue is midline and moved [id number] without any difficulty. No dysarthria is noted. Shoulder shrug is normal bilaterally. Motor: Gait is normal. The strength is 5 over 5 throughout. Normal tone and bulk. Cerebellum: Normal finger to nose bilaterally. Sensation: Sensation is normal to touch throughout. Reflexes (right/left): 2+ throughout uppers while lowers he was resistant on examination. Plantars are mute bilaterally. Some of the workup during this hospital visit consisted of: Lipid Panel is triglyceride 135, cholesterol 164, LDL is 83 and HDL is 53. I reviewed rest of the lab workup. CT head: It is reported as no acute intracranial process. Nonspecific white matter changes, likely secondary due to chronic small vessel ischemic disease. Personally reviewed the CT and I agree with the report. CTA head and neck: Reported as no evidence of dissection of cervical internal carotid artery or vertebral artery or any evidence of significant stenosis at the carotid bifurcation. No evidence of high-grade stenosis or intracranial aneurysm. Had repeat CT head and I feel no acute or subacute process. - Labs CBC & Chem 7: 09/10/24 14:41 09/10/24 14:41 Assessment and Plan Assessment: This is an 89-year-old gentleman who presented emergency department because of speech difficulty in which she felt he knew what he wanted to say but he could not get it out as well as left upper extremity numbness. His symptoms has resolved. Likely transient ischemic attack History of Graves' disease History of melanoma Plan: I ordered MRI of the brain but the MRI machine is down and patient does not want to stay for it. Had repeat CT head and I feel seems negative for acute process. Had 2D echo and pending report. Patient to follow-up with his person investigator as outpatient (Dr. Badillo). I will obtain EEG as outpatient and will be coordinated by [facility]. Patient is resumed on his home dose of aspirin 81 mg daily. In addition I started the patient on Plavix 75 mg daily. Recommend patient to be on dual antiplatelet for 21 days and after 21 days continue Plavix indefinitely but discontinue aspirin. Patient is resumed on his home dose of Lipitor 20 mg nightly Continue neurochecks Cardiac monitoring PT OT and [employer]AC[employer] SHAKER are consulted Will defer the rest of the medical management to primary team and other specialist For DVT prophylaxisOn subcu heparin 5000 units every 12 hours Upon discharge recommend the patient to follow-up with a neurologist as an outpatient within 2 weeks. The plan is discussed with patient, his grand-daughter who is at bedside and his nurse. If repeat CT head report is back negative then clear from neurological perspective. Time with Patient: Less than 30
--- NOTE | 2024-09-14 11:41 | CA ---
Transthoracic Echo Report Name: Micha Chiang Age: 89 Gender: M : 1935 Exam Date: 09/11/2024 15:45 Exam Location: [facility] Ht (in): 71 Wt (lb): 216 Ordering Physician: Thomas Carlson MD Attending/Referring Phys: [employer] Worker Di Stephenson RDCS Procedure CPT: Indications: stroke Cardiac Hx: Technical Quality: Good Contrast 1: Agitated Saline Total Dose (mL): 9 Contrast 2: Total Dose (mL): MEASUREMENTS (Male / Female) Normal Values 2D ECHO LV Diastolic Diameter PLAX 6.6 cm 4.2 - 5.9 / 3.9 - 5.3 cm LV Systolic Diameter PLAX 3.8 cm IVS Diastolic Thickness 1.2 cm 0.6 - 1.0 / 0.6 - 0.9 cm LVPW Diastolic Thickness 1.1 cm 0.6 - 1.0 / 0.6 - 0.9 cm LV Relative Wall Thickness 0.4 RV Internal Dim ED PLAX 4.2 cm LVOT Diameter 2.5 cm LA Systolic Diameter LX 4.3 cm 3.0 - 4.0 / 2.7 - 3.8 cm M-MODE Aortic Root Diameter MM 3.7 cm AV Cusp Separation MM 2.0 cm DOPPLER AV Peak Velocity 132.7 cm/s AV Peak Gradient 7.0 mmHg Mitral E Point Velocity 71.8 cm/s Mitral A Point Velocity 72.3 cm/s Mitral E to A Ratio 1.0 MV Deceleration Time 325.6 ms MV E' Velocity 7.5 cm/s Mitral E to MV E' Ratio 9.6 TR Peak Velocity 244.8 cm/s TR Peak Gradient 24.0 mmHg Right Ventricular Systolic Press 34.0 mmHg FINDINGS Left Ventricle Left ventricular ejection fraction is estimated at 50-55 %. Mildly increased septal wall thickness. Moderately increased left ventricular diastolic diameter. No obvious regional wall motion abnormalities. Right Ventricle Severe right ventricular dilatation. Mild pulmonary hypertension. Right Atrium Normal right atrial size. Negative agitated saline bubble study for right to left shunt. No right atrial thrombus or mass seen. Left Atrium Mildly increased left atrial diameter. No left atrial thrombus or mass present. Mitral Valve Structurally normal mitral valve. No mitral stenosis, regurgitation or prolapse. Aortic Valve Trileaflet aortic valve. Thickened aortic valve without stenosis. Tricuspid Valve Structurally normal tricuspid valve. Mild tricuspid regurgitation. Pulmonic Valve Structurally normal pulmonic valve. Trace pulmonic regurgitation. Pericardium No pericardial or pleural effusion. Aorta Normal size aortic root and proximal ascending aorta. CONCLUSIONS Normal biventricular systolic function Aortic sclerosis with no stenosis or regurgitation No pericardial effusion Mild pulmonary hypertension Previewed by: Dr. Shankar Thompson MD (Electronically Signed) Final Date: 14 September 2024 11:41
== END 2024-09-12 13:18 | disposition home or self-care (01) ==
LOC: EC 14:17 → 6NMEDSUR 17:01
PROVIDERS: ADMIT Hospitalist; ATTEND Hospitalist
DX: G45.9 Transient cerebral ischemic attack, unspecified (principal); E05.00 Thyrotoxicosis with diffuse goiter without thyrotoxic crisis or storm; J98.09 Other diseases of bronchus, not elsewhere classified; N40.0 Benign prostatic hyperplasia without lower urinary tract symptoms; M19.90 Unspecified osteoarthritis, unspecified site; R05.9 Cough, unspecified; E66.9 Obesity, unspecified; Z68.30 Body mass index [BMI] 30.0-30.9, adult; Z79.82 Long term (current) use of aspirin; Z79.02 Long term (current) use of antithrombotics/antiplatelets; Z79.899 Other long term (current) drug therapy; Z79.890 Hormone replacement therapy; Z87.891 Personal history of nicotine dependence; Z85.828 Personal history of other malignant neoplasm of skin; Z85.820 Personal history of malignant melanoma of skin
CPT/HCPCS: 96372 ×2; 99285; 36415; 94760; 93005; 93306; 97161; 97165; 80061; 80053; 82550; 84484; 85025; 85610; 85730; 87636; 71046; 70496; 70450 ×2; 70498; G0378 ×3; S0138 ×2; J1644 ×2; Q9967